=== PATIENT | female | born 1960 | race Caucasian/White ===

== ENCOUNTER 2022-01-11 12:04 | Outpatient (CLI) | payer OTHER, MEDICAID, SELFPAY ==
[2022-01-11 12:41] LABS: Basophils Percent Auto 0.4 % (0.2-1.2); Eosinophils Absolute Auto 0.3 K/mm3 (0-0.3); Eosinophils Percent Auto 3.8 % (0-4.4); Hematocrit 43.1 % (37.0-47.0); Hemoglobin 13.9 g/dL (12.0-15.0); Immature Granulocyte Absolute 0.03 K/mm3 (0.00-0.031); Immature Granulocyte Percent A 0.4 % (0-0.5); Lymphocytes Absolute Auto 1.78 K/mm3 (0.9-3.2); Lymphocytes Percent Auto 21.7 % (18.3-44.2); Mean Corpuscular HGB Conc 32.3 g/dl (32-36); Mean Corpuscular Volume 93.1 fl (80-100); Mean Platelet Volume 9.3 fl (7.4-10.4); Monocytes Absolute Auto 0.4 K/mm3 (0.1-0.6); Monocytes Percent Auto 4.6 % (2.6-8.5); Neutrophils Absolute Auto 5.7 K/mm3 (1.3-6.7); Neutrophils Percent Auto 69.1 % (45.5-73.1); Platelet Count Result 169 k/mm3 (150-375); Red Blood Count 4.63 M/mm3 (4.2-5.4); Red Cell Distribution Width 16.9 % (11.5-14.5); White Blood Count 8.2 K/mm3 (4.5-10.0)
[2022-01-11 12:57] LABS: Alanine Aminotransferase 12 U/L (4-35); Albumin Level 4.5 g/dL (3.5-5.1); Alkaline Phosphatase 94 U/L (38-126); Anion Gap 7 mmol/L (8-16); Aspartate Amino Transferase 22 U/L (14-36); Bilirubin,Total 0.6 mg/dL (0.2-1.3); Blood Urea Nitrogen 11 mg/dL (7-17); Calcium 8.4 mg/dL (8.4-10.2); Carbon Dioxide 31 mmol/L (22-30); Chloride 102 mmol/L (98-107); Cholesterol 148 mg/dL (0-200); Estimated Glomerular Filt Rate > 60; Glucose 111 mg/dL (65-110); HDL Direct 39 mg/dL; Potassium 4.3 mmol/L (3.4-5.0); Sodium 140 mmol/L (137-145); Triglycerides 210 mg/dL (<150)
[2022-01-11 13:08] LABS: LDL Cholesterol Direct 66 mg/dL
[2022-01-11 13:18] LABS: Hemoglobin A1C 5.5 % (<5.7)
== END 2022-01-11 12:05 | disposition home or self-care (01) ==
PROVIDERS: PCP Family Medicine; Visit Provider Physician Assistant Medical
DX: I10 Essential (primary) hypertension (principal); E78.5 Hyperlipidemia, unspecified; E11.9 Type 2 diabetes mellitus without complications
CPT/HCPCS: 36415; 80053; 80061; 83036; 84443; 85025

== ENCOUNTER 2022-06-21 14:26 | Outpatient (CLI) | payer MEDICARE, MEDICAID, SELFPAY ==
--- NOTE | ~2022-06-21 | XR_ITS ---
XR foot RT min 3V DATE: 06/21/2022 15:24 INDICATION: Old fracture of fifth metatarsal bone TECHNIQUE: 5 views COMPARISON: None FINDINGS: Slight plantar and mild posterior calcaneal enthesopathy. There is an old healed united fracture deformity at the base of the fifth metatarsal bone. No recent fracture or dislocation, periosteal reaction or bone destruction. IMPRESSION: Old healed fifth metatarsal base fracture line calcaneal enthesopathy Reviewed, dictated and finalized at location B. IMPRESSION: Old healed fifth metatarsal base fracture line calcaneal enthesopat hy
[2022-06-21 15:38] LABS: Alanine Aminotransferase 14 U/L (6-35); Albumin Level 4.5 g/dL (3.5-5.1); Alkaline Phosphatase 93 U/L (38-126); Anion Gap 13 mmol/L (8-16); Aspartate Amino Transferase 21 U/L (14-36); Bilirubin,Total 0.4 mg/dL (0.2-1.3); Blood Urea Nitrogen 12 mg/dL (7-17); Calcium 8.6 mg/dL (8.4-10.2); Carbon Dioxide 30 mmol/L (22-30); Chloride 97 mmol/L (98-107); Estimated Glomerular Filt Rate > 60; Glucose 103 mg/dL (65-110); Potassium 4.2 mmol/L (3.4-5.0); Sodium 140 mmol/L (137-145)
== END 2022-06-21 14:27 | disposition home or self-care (01) ==
PROVIDERS: PCP Family Medicine; Referring Provider Family Medicine; Visit Provider Family Medicine
DX: S92.351A Displaced fracture of fifth metatarsal bone, right foot, initial encounter for closed fracture (principal); E83.42 Hypomagnesemia; J96.22 Acute and chronic respiratory failure with hypercapnia; M77.31 Calcaneal spur, right foot
CPT/HCPCS: 36415; 73630; 80053

== ENCOUNTER 2023-01-25 09:21 | Outpatient (CLI) | payer MEDICARE, MEDICAID, SELFPAY ==
[2023-01-25 10:20] LABS: Alanine Aminotransferase 20 U/L (6-35); Albumin Level 4.6 g/dL (3.5-5.1); Alkaline Phosphatase 113 U/L (38-126); Anion Gap 7 mmol/L (8-16); Aspartate Amino Transferase 32 U/L (14-36); Bilirubin,Total 0.7 mg/dL (0.2-1.3); Blood Urea Nitrogen 12 mg/dL (7-17); Calcium 8.9 mg/dL (8.4-10.2); Carbon Dioxide 32 mmol/L (22-30); Chloride 98 mmol/L (98-107); Cholesterol 156 mg/dL (0-200); Estimated Glomerular Filt Rate > 60; Glucose 203 mg/dL (65-110); HDL Direct 39 mg/dL; Potassium 5.2 mmol/L (3.4-5.0); Sodium 137 mmol/L (137-145); Triglycerides 307 mg/dL (<150)
[2023-01-25 10:29] LABS: Hemoglobin A1C 9.6 % (<5.7)
[2023-01-25 10:39] LABS: Creatinine Urine 82.3 mg/dL
[2023-01-25 10:43] LABS: Microalbumin Urine Random 38.7 mg/L (0-16.7)
[2023-01-25 10:45] LABS: LDL Cholesterol Direct 73 mg/dL
[2023-01-25 11:07] LABS: Vitamin D 25 Hydroxy < 12.8 ng/mL
== END 2023-01-25 09:22 | disposition home or self-care (01) ==
PROVIDERS: PCP Family Medicine; Visit Provider Nurse Practitioner Family
DX: E11.9 Type 2 diabetes mellitus without complications (principal); I10 Essential (primary) hypertension; F41.9 Anxiety disorder, unspecified; E55.9 Vitamin D deficiency, unspecified
CPT/HCPCS: 36415; 80053; 80061; 82043; 82306; 83036; 84443

== ENCOUNTER 2023-05-09 10:29 | Outpatient (CLI) | payer MEDICARE, MEDICAID, SELFPAY | END 2023-05-09 10:30 | disposition home or self-care (01) | LOC: ANHAUDIO 10:29 | PROVIDERS: PCP Family Medicine; Visit Provider Nurse Practitioner Family | DX: H90.3 Sensorineural hearing loss, bilateral (principal); H93.19 Tinnitus, unspecified ear | CPT/HCPCS: 92557; 92567 ==

== ENCOUNTER 2023-05-21 20:21 | Emergency (ER) | payer MEDICARE, MEDICAID, SELFPAY ==
--- NOTE | ~2023-05-21 | CT_ITS ---
EXAMINATION: CT abdomen pelvis w con DATE: 05/21/2023 22:03 INDICATION: Generalized abdominal pain. TECHNIQUE: Computed tomography (CT) of the abdomen and pelvis was performed with 100 mL Omnipaque 350 intravenous contrast. Automated exposure control and iterative reconstruction technique were employe d. The dose-length product was 1492.51 mGy-cm. COMPARISON: CT abdomen and pelvis 12/04/2012 FINDINGS: The visualized portions of the lung bases demonstrate mild atelectasis. There is a 5 mm nod ule in left lower lobe, likely benign. No pleural effusion. The heart size is normal. There is lipoma tous hypertrophy of the interatrial septum. No pericardial effusion. The liver is normal. There are c hanges of cholecystectomy. There is mild splenomegaly. The pancreas is normal. There is fat stranding and free gas adjacent to the duodenum, consistent with perforated ulcer. There are masses of fat in the adrenal glands measuring up to 2.5 cm on the left, consistent with myelolipomas. There is a 3.9 c m mass in right kidney measuring soft tissue attenuation. There are cysts in the left kidney measurin g up to 3.2 cm . There are no dilated loops of bowel. The appendix is normal. Aortic atherosclerosis is noted. There are no pathologically enlarged lymph nodes. There is no free intraperitoneal fluid. T here is a 6.4 cm mass in the mesentery with central fat attenuation and peripheral calcifications, co nsistent with old fat necrosis. There is severe lumbar spondylosis. There is a burst fracture of L2 w ith 5 mm retropulsion of bone into central spinal canal and 3/5 loss of height, likely subacute or ch ronic. There is mild chronic anterior wedging of multiple thoracic vertebral bodies. There is moderat e thoracic and lumbar spondylosis. There are bridging endplate osteophytes at multiple levels in the thoracic spine, consistent with diffuse idiopathic skeletal hyperostosis (DISH). IMPRESSION: 1. Perforated duodenal ulcer. 2. 3.9 cm right kidney mass. This finding may be a hemorrhagic cyst or less likely a neoplasm. Ultras ound is recommended. Reviewed, dictated and finalized at location A. IMPRESSION: 1. Perforated duodenal ulcer. 2. 3.9 cm right kidney mass. This finding may be a hemorrhagic cyst or less lik gunnar a neoplasm. Ultrasound is recommended.
[2023-05-21 20:32] VITALS: BP 135/116; PULSE 97; RESP 14; TEMP 36.2; O2SAT 98
[2023-05-21] MEDS: SODIUM CHLORIDE 0.9% IV 1,000 ML 999 ML IV CONT ×2 (21:21→22:18)
[2023-05-21] MEDS: ONDANSETRON INJ 4 MG/2 ML VIAL IV PUSH (21:21)
[2023-05-21 21:26] LABS: Basophils Absolute Auto 0.1 K/mm3 (0.0-0.1); Basophils Percent Auto 0.6 % (0.2-1.2); Eosinophils Absolute Auto 0.8 K/mm3 (0-0.3); Eosinophils Percent Auto 4.6 % (0-4.4); Hematocrit 27.2 % (37.0-47.0); Hemoglobin 8.3 g/dL (12.0-15.0); Immature Granulocyte Absolute 0.24 K/mm3 (0.00-0.031); Immature Granulocyte Percent A 1.3 % (0-0.5); Lymphocytes Absolute Auto 1.61 K/mm3 (0.9-3.2); Mean Corpuscular HGB Conc 30.5 g/dl (32-36); Mean Corpuscular Hemoglobin 28.5 pg (26-34); Mean Corpuscular Volume 93.5 fl (80-100); Mean Platelet Volume 9.7 fl (7.4-10.4); Monocytes Absolute Auto 0.7 K/mm3 (0.1-0.6); Monocytes Percent Auto 3.9 % (2.6-8.5); Neutrophils Absolute Auto 14.4 K/mm3 (1.3-6.7); Neutrophils Percent Auto 80.6 % (45.5-73.1); Nucleated Red Blood Cells Perc 0.2 % (0.0-0.2); Platelet Count Result 378 k/mm3 (150-375); Red Blood Count 2.91 M/mm3 (4.2-5.4); Red Cell Distribution Width 17.3 % (11.5-14.5); White Blood Count 17.9 K/mm3 (4.5-10.0)
[2023-05-21 21:34] LABS: Lactic Acid Reflex 3.3 mmol/L (0.7-2.0)
[2023-05-21 21:36] LABS: Alanine Aminotransferase 16 U/L (6-35); Albumin Level 3.7 g/dL (3.5-5.1); Alkaline Phosphatase 86 U/L (38-126); Anion Gap 11 mmol/L (8-16); Aspartate Amino Transferase 20 U/L (14-36); Bilirubin,Total 0.4 mg/dL (0.2-1.3); Blood Urea Nitrogen 38 mg/dL (7-17); Calcium 8.2 mg/dL (8.4-10.2); Carbon Dioxide 25 mmol/L (22-30); Chloride 96 mmol/L (98-107); Estimated CRCL calculation 49 ml/min; Estimated Glomerular Filt Rate 35; Glucose 232 mg/dL (65-110); INR 1.2; Lipase 71 U/L (23-300); Magnesium 1.6 mg/dL (1.6-2.3); Potassium 5.7 mmol/L (3.4-5.0); Prothrombin Time 15.2 Seconds (11.1-14.7); Sodium 132 mmol/L (137-145)
[2023-05-21 21:37] LABS: Partial Thromboplastin Time 27.8 SECONDS (22.3-36.8)
--- NOTE | 2023-05-21 21:44 | PC.NURSE ---
pt taken to CT at this time
[2023-05-21 22:30] LABS: Appearance Urine Cloudy (Clear); Bacteria Urine None Seen /hpf; Bilirubin Urine Negative (Negative); Blood Urine Negative (Negative); Color Urine Yellow (Yellow); Glucose Urine UA 3+ mg/dL (Negative); Ketones Urine Negative (Negative); Leukocyte Esterase Ur Trace LEU/UL (Negative); Need Manual Microscopic Reviewed; Nitrate Urine Negative (Negative); Protein Urine Negative (Negative); RBC Urine 0-2 /hpf (0-2); Specific Grav Ur 1.026 (1.001-1.035); Squamous Epithelial Cell Urine Occasional /hpf (Few); Urobilinogen Urine 0.2 mg/dL (<2.0); WBC Urine 0-5 /hpf
[2023-05-21 22:31] LABS: Add Urine Microscopic? YES
[2023-05-21] MEDS: MAGNESIUM SULF 2 GM/WATER 50ML 2 GM/50 ML BAG IVPB (22:54)
[2023-05-21] MEDS: HYDROmorphone HCL INJ (*CRX) 1 MG/ML SYR IV PUSH (23:53)
--- NOTE | 2023-05-21 23:56 | ED.GENADULT ---
HPI - General Adult General Chief complaint: GI Bleed Stated complaint: gi bleed Time Seen by Provider: 05/21/23 20:34 History of Present Illness HPI narrative: Patient is a 63-year-old female who presents the emergency department with chief complaint of abdominal pain nausea and vomiting. Patient reports that she started having abdominal pain about 4 days ago and has also had multiple episodes of vomiting and diarrhea. Patient reports that she has prior history of history of gastric 8 years ago at [facility] patient states that she does not want to go back to [facility] as people by there. Patient reports that she has been recently treated with antibiotics for dental infection and reports that she was seen at [place] emergency department and had a x-ray of her abdomen and was given a prescription for Zofran. Patient reports this feels similar to whenever she had a bowel perforation in the past. Related Data Allergies Allergy/AdvReac Type Severity Reaction Status Date / Time No Known Allergies Allergy Verified 02/10/23 09:20 Review of Systems Review of Systems: A 10 system review of systems was completed on the patient and is negative except for what is stated in the HPI. Nursing and ancillary documentation was reviewed. [facility] Past Medical History Medical History (Updated 05/22/23 @ 01:20 by Miguel Salgado MD) Agoraphobia with panic disorder Atherosclerotic heart disease of [place] coronary artery with angina pectoris CHF (congestive heart failure) With preserved ejection fraction echocardiogram April 2022 EF 62% unable to evaluate pulmonary pressures due to difficult study pericardial effusion study performed at [facility] Chronic respiratory failure with hypoxia and hypercapnia Compression fracture T10 through T12 vertebral body COPD (chronic obstructive pulmonary disease) De Quervain's tenosynovitis Diabetes Diabetic retinopathy Essential (primary) hypertension Fracture of 5th metatarsal Hepatosplenomegaly MDD (major depressive disorder) Mixed hyperlipidemia Morbid (severe) obesity due to excess calories With a BMI as high as 60 in the past but currently 46 Obstructive sleep apnea Peripheral neuropathy Tinnitus Uterine cancer Venous stasis of both lower extremities Vitamin D deficiency Surgical History Surgical History (Updated 05/22/23 @ 00:07 by Jocelin Magana DO) Gastric ulcer with perforation 2011 treated at [place] History of colonoscopy with polypectomy (~2014) Hyperplastic polyp, dr. Salazar History of lumbar laminectomy History of right heart catheterization History of total hysterectomy with bilateral salpingo-oophorectomy (BSO) Hx of cholecystectomy Family History Family History Sibling Family history of thyroid disease Mother Hypertension Family history of diabetes mellitus in first degree relative Acute myocardial infarction Father Family history of chronic obstructive pulmonary disease Malignant neoplasm of prostate Family history of lung cancer Skin cancer Sibling Thyroid activity decreased Breast cancer Other Carcinoma of colon Cerebrovascular accident Diabetes mellitus Family history of allergic disorder Family history of cardiovascular disease Family history of malignant neoplasm Social History Social History Smoking status: Former smoker Second hand tobacco smoke exposure: Yes Smoking end date: 10/02/12 Alcohol intake: never Substance use: never Substance use type: does not use Lack of Transportation: No Lack of Food: Never True Current Housing: I Have Housing Concerned About Future Housing: No Difficulty Paying Gas/Electric Bills: No Difficulty Paying for Meds: No Currently Unemployed: No Education: Bachelor's Degree Difficulty w/ Childcare or Family Care: No
[2023-05-22] VITALS (14 sets, daily range): BP systolic 51–86; BP diastolic 25–54; PULSE 92–121; RESP 13–22; TEMP 36.8; O2SAT 93–99
--- NOTE | 2023-05-22 00:05 | PC.NURSE ---
pt found to be hypotensive. Dr. Salgado aware. IVFs initiated per previous orders. pt A&Ox4 in no distress. will continue to monitor.
[2023-05-22] MEDS: PIPERACILLN/TAZ 3.375GM/NS50ML 3.375 GM/50 ML BAG IVPB (00:12)
[2023-05-22 00:23] LABS: Reflex Lactic Acid Yes or No Add Lactic
[2023-05-22 00:49] LABS: Hematocrit 23.1 % (37.0-47.0); Hemoglobin 7.1 g/dL (12.0-15.0)
[2023-05-22] MEDS: SODIUM CHLORIDE 0.9% IV 1,000 ML 999 ML IV CONT (00:58)
[2023-05-22 01:00] LABS: Lactic Acid 1.3 mmol/L (0.7-2.0)
[2023-05-22] MEDS: PANTOPRAZOLE SODIUM IV 40 MG VIAL 80 MG IV PUSH (01:15)
--- NOTE | 2023-05-22 01:30 | PC.NURSE ---
pt to be transferred to [facility] in [place]. pt/family aware.
--- NOTE | 2023-05-22 01:55 | PC.NURSE ---
Report given to Narendra at [facility].
--- NOTE | 2023-05-22 02:05 | PC.NURSE ---
[facility] here to transport pt. PRBCs initiated by team.
== END 2023-05-22 02:43 | disposition short-term general hospital (02) ==
PROVIDERS: Emergency Provider Emergency Medicine; PCP Family Medicine
DX: K26.5 Chronic or unspecified duodenal ulcer with perforation (principal); I10 Essential (primary) hypertension; E11.9 Type 2 diabetes mellitus without complications; E78.2 Mixed hyperlipidemia; Z87.891 Personal history of nicotine dependence
CPT/HCPCS: 36415; 36430; 74177; 80053; 81001; 83605; 83690; 83735; 85014; 85018; 85025; 85610; 85730; 86850; 86900; 86901; 86923; 96361; 96365; 96367; 96375; 99285; C9113; J1170; J2405; J2543; J3475; J7030; P9016; Q9967

== ENCOUNTER 2023-06-08 10:45 | Emergency (ER) | payer MEDICARE, MEDICAID, SELFPAY ==
[2023-06-08] VITALS (7 sets, daily range): BP systolic 109–148; BP diastolic 61–79; PULSE 90–121; RESP 13–20; TEMP 37.4; O2SAT 93–99
--- NOTE | ~2023-06-08 | CT_ITS ---
EXAMINATION: CT abdomen pelvis w con INDICATION: Abdominal pain TECHNIQUE: Computed tomographic images of the abdomen and pelvis were obtained after the administrati on of 100 cc of Omnipaque 350 intravenous contrast. The dose-length product (DLP) was 1696.95 mGy-cm. Automated exposure control and iterative reconstruction technique were employed. COMPARISON: 05/21/2023 FINDINGS: Minimal dependent atelectasis is present in the lung bases. The heart size is normal. There is lipomatous hypertrophy of the interatrial septum. The liver and pancreas are normal. Splenomegaly is noted. Fat-containing masses of the adrenal glands, measuring up to 2.5 cm on the left, are consi stent with a myelolipomas. Changes of cholecystectomy are noted. There is persistent right upper quad rant inflammatory change near the site of the previously described perforated duodenal ulcer. No defi nite extraluminal gas is identified. There is an unchanged 3.9 cm soft tissue density mass of the rig ht kidney. Cysts of the left kidney measure up to 3.2 cm. No pathologically enlarged abdominal or pel maicol lymph nodes are identified. No free intraperitoneal gas or evidence of bowel obstruction. The lillian endix is normal. Again seen is a 6.8 cm peripherally calcified mass of the small bowel mesentery with central low-attenuation, consistent with fat necrosis. There is severe lumbar spondylosis. An L2 bur st fracture is again noted. IMPRESSION: 1. Inflammatory change in the first portion of the duodenum at the site of the previously described p erforated duodenal ulcer. No definite perforation is identified. 2. Stable indeterminate right kidney mass. Reviewed, dictated and finalized at location L. IMPRESSION: 1. Inflammatory change in the first portion of the duodenum at the site of the previously described perforated duodenal ulcer. No definite perforation is iden tified. 2. Stable indeterminate right kidney mass.
--- NOTE | 2023-06-08 10:51 | ECG_ITS ---
Measurements Intervals [place] Rate: 118 P: WI: 0 QRS: 51 QRSD: 92 T: 43 QT: 341 QTc: 479 Interpretive Statements ATRIAL FLUTTER/TACHYCARDIA WITH RAPID VENTRICULAR RESPONSE DELAYED PRECORDIAL R/S TRANSITION CONSIDER INFERIOR INFARCT, AGE INDETERMINATE BASELINE ARTIFACT- I, II, AVR, AVL, AVF ABNORMAL ECG NO PREVIOUS ECG AVAILABLE FOR COMPARISON Electronically Signed On 06-08-2023 11:56:45 CDT by Chema Franco D.O.
[2023-06-08 12:18] LABS: Basophils Percent Auto 0.6 % (0.2-1.2); Eosinophils Absolute Auto 0.1 K/mm3 (0-0.3); Eosinophils Percent Auto 1.8 % (0-4.4); Hematocrit 32.2 % (37.0-47.0); Hemoglobin 9.2 g/dL (12.0-15.0); Immature Granulocyte Absolute 0.03 K/mm3 (0.00-0.031); Immature Granulocyte Percent A 0.5 % (0-0.5); Lymphocytes Absolute Auto 0.94 K/mm3 (0.9-3.2); Lymphocytes Percent Auto 15.2 % (18.3-44.2); Mean Corpuscular HGB Conc 28.6 g/dl (32-36); Mean Platelet Volume 9.8 fl (7.4-10.4); Monocytes Absolute Auto 0.3 K/mm3 (0.1-0.6); Monocytes Percent Auto 4.4 % (2.6-8.5); Neutrophils Absolute Auto 4.8 K/mm3 (1.3-6.7); Neutrophils Percent Auto 77.5 % (45.5-73.1); Platelet Count Result 191 k/mm3 (150-375); Red Blood Count 3.54 M/mm3 (4.2-5.4); Red Cell Distribution Width 16.8 % (11.5-14.5); White Blood Count 6.2 K/mm3 (4.5-10.0)
[2023-06-08 12:29] LABS: INR 1.1; Prothrombin Time 14.3 Seconds (11.1-14.7)
[2023-06-08 12:32] LABS: Alanine Aminotransferase 16 U/L (6-35); Albumin Level 3.9 g/dL (3.5-5.1); Alkaline Phosphatase 69 U/L (38-126); Anion Gap 8 mmol/L (8-16); Aspartate Amino Transferase 22 U/L (14-36); Bilirubin,Total 0.4 mg/dL (0.2-1.3); Blood Urea Nitrogen 11 mg/dL (7-17); Calcium 8.5 mg/dL (8.4-10.2); Carbon Dioxide 34 mmol/L (22-30); Chloride 98 mmol/L (98-107); Estimated CRCL calculation 117 ml/min; Estimated Glomerular Filt Rate > 60; Glucose 224 mg/dL (65-110); Potassium 4.3 mmol/L (3.4-5.0); Sodium 140 mmol/L (137-145)
[2023-06-08 12:36] LABS: Hypochromasia 1+ (NORMAL); Platelet Estimate Adequate (Adequate)
[2023-06-08 12:37] LABS: Anisocytosis 1+ (NORMAL); Macrocytosis 1+ (NORMAL); Schistocytes None Seen (NORMAL)
--- NOTE | 2023-06-08 12:39 | ED.GIBLEED ---
HPI - GI Bleed General Chief complaint: GI Bleed Stated complaint: gi bleed Time Seen by Provider: 06/08/23 12:28 History of Present Illness HPI Narrative: Patient is a 63-year-old female with history of perforated duodenal ulcer here with abdominal pain and dark stools. Patient states that around midnight last night she started having exquisite abdominal pain associated with multiple rounds of emesis and dark stools. She notes that this was similar presentation to her last hospitalization where she was transferred to [facility] to the ICU for perforated duodenal ulcer. She notes that no surgery was required during that hospitalization. She has otherwise been doing pretty well. She notes that she had about 15 episodes of vomiting and diarrhea since this morning and she came into the emergency department for evaluation. She notes her stools are not quite as dark as they were on her last presentation. She denies any lightheadedness. She does endorse some shortness of breath and an EMS arrival she was placed on 2 L nasal cannula. She denies home oxygen use. She does note that she had CHF from the COVID shot in the past. Denies cough, congestion, chest pain. Related Data Home Medications Medication Instructions Recorded Confirmed pantoprazole 40 mg tablet,delayed mg PO 06/06/23 06/06/23 release Allergies Allergy/AdvReac Type Severity Reaction Status Date / Time cephalexin [From Keflex] AdvReac Other Verified 06/08/23 10:59 Review of Systems Review of Systems: CONSTITUTIONAL: Denies fever, chills, or sweats. EYES: Denies visual changes, redness, or discharge. ENT: Denies rhinorrhea, congestion, sore throat, or otalgia. CARDIOVASCULAR: Denies chest pain, palpitations, or edema. RESPIRATORY: Denies cough or dyspnea. GASTROINTESTINAL: abdominal pain, nausea, vomiting, and diarrhea. GENITOURINARY: Denies dysuria or hematuria. SKIN: Denies rash or itching. MUSCULOSKELETAL: Denies back pain, joint pain, or myalgia. NEUROLOGIC: Denies headache, numbness, or weakness. PSYCHIATRIC: Denies anxiety or depression. [facility] Past Medical History Medical History Agoraphobia with panic disorder Atherosclerotic heart disease of [place] coronary artery with angina pectoris CHF (congestive heart failure) With preserved ejection fraction echocardiogram April 2022 EF 62% unable to evaluate pulmonary pressures due to difficult study pericardial effusion study performed at [facility] Chronic respiratory failure with hypoxia and hypercapnia Compression fracture T10 through T12 vertebral body COPD (chronic obstructive pulmonary disease) De Quervain's tenosynovitis Diabetes Diabetic retinopathy Essential (primary) hypertension Fracture of 5th metatarsal Hepatosplenomegaly MDD (major depressive disorder) Mixed hyperlipidemia Morbid (severe) obesity due to excess calories With a BMI as high as 60 in the past but currently 46 Obstructive sleep apnea Peripheral neuropathy Tinnitus Uterine cancer Venous stasis of both lower extremities Vitamin D deficiency Surgical History Surgical History Gastric ulcer with perforation 2011 treated at [place] History of colonoscopy with polypectomy (~2014) Hyperplastic polyp, dr. Salazar History of lumbar laminectomy History of right heart catheterization History of total hysterectomy with bilateral salpingo-oophorectomy (BSO) Hx of cholecystectomy Family History Family History Sibling Family history of thyroid disease Mother Hypertension Family history of diabetes mellitus in first degree relative Acute myocardial infarction Father Family history of chronic obstructive pulmonary disease Malignant neoplasm of prostate Family history of lung cancer Skin cancer Sibling Thyr
--- NOTE | 2023-06-08 13:08 | PC.NURSE ---
Pt taken off 2L O2 NC per EDP Dr. Bruce
[2023-06-08] MEDS: PANTOPRAZOLE SODIUM IV 40 MG VIAL 80 MG IV PUSH (13:40)
== END 2023-06-08 16:29 | disposition home or self-care (01) ==
PROVIDERS: Emergency Provider Student in an Organized Health Care Education/Training Program; PCP Family Medicine
DX: R10.9 Unspecified abdominal pain (principal); I25.119 Atherosclerotic heart disease of native coronary artery with unspecified angina pectoris; I50.9 Heart failure, unspecified; I11.0 Hypertensive heart disease with heart failure; I87.8 Other specified disorders of veins; J96.11 Chronic respiratory failure with hypoxia; J96.12 Chronic respiratory failure with hypercapnia; J44.9 Chronic obstructive pulmonary disease, unspecified; E11.319 Type 2 diabetes mellitus with unspecified diabetic retinopathy without macular edema; E11.42 Type 2 diabetes mellitus with diabetic polyneuropathy; E78.2 Mixed hyperlipidemia; E55.9 Vitamin D deficiency, unspecified; F40.01 Agoraphobia with panic disorder; F32.9 Major depressive disorder, single episode, unspecified; G47.33 Obstructive sleep apnea (adult) (pediatric); Z85.42 Personal history of malignant neoplasm of other parts of uterus; Z87.19 Personal history of other diseases of the digestive system; Z87.891 Personal history of nicotine dependence; Z90.710 Acquired absence of both cervix and uterus; Z90.79 Acquired absence of other genital organ(s); Z90.722 Acquired absence of ovaries, bilateral; Z90.49 Acquired absence of other specified parts of digestive tract; Z79.84 Long term (current) use of oral hypoglycemic drugs; N28.89 Other specified disorders of kidney and ureter; R00.0 Tachycardia, unspecified; I48.92 Unspecified atrial flutter; R94.31 Abnormal electrocardiogram [ECG] [EKG]
CPT/HCPCS: 36415; 74177; 80053; 85025; 85610; 85730; 86850; 86900; 86901; 93005; 96374; 99284; C9113; Q9967

== ENCOUNTER 2023-06-28 10:41 | Outpatient (CLI) | payer MEDICARE, MEDICAID, SELFPAY ==
[2023-06-28 11:34] LABS: Hematocrit 34.2 % (37.0-47.0); Hemoglobin 9.9 g/dL (12.0-15.0); Mean Corpuscular HGB Conc 28.9 g/dl (32-36); Mean Corpuscular Hemoglobin 24.7 pg (26-34); Mean Corpuscular Volume 85.3 fl (80-100); Mean Platelet Volume 9.3 fl (7.4-10.4); Platelet Count Result 281 k/mm3 (150-375); Red Blood Count 4.01 M/mm3 (4.2-5.4); Red Cell Distribution Width 18.1 % (11.5-14.5)
[2023-06-28 11:55] LABS: Alanine Aminotransferase 14 U/L (6-35); Albumin Level 4.2 g/dL (3.5-5.1); Alkaline Phosphatase 75 U/L (38-126); Anion Gap 10 mmol/L (8-16); Aspartate Amino Transferase 23 U/L (14-36); Bilirubin,Total 0.4 mg/dL (0.2-1.3); Blood Urea Nitrogen 18 mg/dL (7-17); Calcium 9.1 mg/dL (8.4-10.2); Carbon Dioxide 25 mmol/L (22-30); Chloride 99 mmol/L (98-107); Estimated Glomerular Filt Rate > 60; Glucose 138 mg/dL (65-110); Potassium 5.4 mmol/L (3.4-5.0); Sodium 134 mmol/L (137-145)
== END 2023-06-28 10:42 | disposition home or self-care (01) ==
PROVIDERS: PCP Family Medicine; Visit Provider Nurse Practitioner Family
DX: K92.2 Gastrointestinal hemorrhage, unspecified (principal)
CPT/HCPCS: 36415; 80053; 85027

== ENCOUNTER 2023-07-25 09:56 | Outpatient (CLI) | payer MEDICARE, MEDICAID, SELFPAY ==
[2023-07-25 10:18] LABS: Hematocrit 34.4 % (37.0-47.0); Hemoglobin 9.6 g/dL (12.0-15.0); Mean Corpuscular HGB Conc 27.9 g/dl (32-36); Mean Corpuscular Hemoglobin 22.7 pg (26-34); Mean Corpuscular Volume 81.3 fl (80-100); Mean Platelet Volume 9.5 fl (7.4-10.4); Platelet Count Result 321 k/mm3 (150-375); Red Blood Count 4.23 M/mm3 (4.2-5.4); Red Cell Distribution Width 18.6 % (11.5-14.5); White Blood Count 8.1 K/mm3 (4.5-10.0)
[2023-07-25 10:25] LABS: Potassium 4.8 mmol/L (3.4-5.0)
== END 2023-07-25 09:57 | disposition home or self-care (01) ==
PROVIDERS: PCP Family Medicine; Visit Provider Nurse Practitioner Family
DX: D64.9 Anemia, unspecified (principal); E87.5 Hyperkalemia
CPT/HCPCS: 36415; 84132; 85027

== ENCOUNTER 2023-08-14 17:14 | Emergency (ER) | payer MEDICARE, MEDICAID, SELFPAY ==
[2023-08-14] VITALS (9 sets, daily range): BP systolic 90–143; BP diastolic 57–115; PULSE 80–116; RESP 16–22; TEMP 36.2; O2SAT 86–98
--- NOTE | 2023-08-14 18:01 | ED.GENADULT ---
HPI - General Adult General Chief complaint: Weakness Stated complaint: gen. weak x 2 week Time Seen by Provider: 08/14/23 17:33 History of Present Illness HPI narrative: 63-year-old female history of bleeding duodenal ulcer present to the emergency department for evaluation of increased generalized weakness. Patient states she has had persistent blood in her stool and is scheduled to follow-up with Dr. Salazar in 2 weeks and is scheduled to have a transfusion this Monday. Patient initially called for lift assist but then called the EMS service that she went to be evaluated emergency department. Patient reports decreased p.o. intake. Related Data Allergies Allergy/AdvReac Type Severity Reaction Status Date / Time cephalexin [From Keflex] AdvReac Other Verified 06/08/23 10:59 Review of Systems Review of Systems: All systems reviewed & are unremarkable except as noted in HPI and below PMFSH Past Medical History Medical History Agoraphobia with panic disorder Atherosclerotic heart disease of [place] coronary artery with angina pectoris CHF (congestive heart failure) With preserved ejection fraction echocardiogram April 2022 EF 62% unable to evaluate pulmonary pressures due to difficult study pericardial effusion study performed at [facility] Chronic respiratory failure with hypoxia and hypercapnia Compression fracture T10 through T12 vertebral body COPD (chronic obstructive pulmonary disease) De Quervain's tenosynovitis Diabetes Diabetic retinopathy Essential (primary) hypertension Fracture of 5th metatarsal Hepatosplenomegaly MDD (major depressive disorder) Mixed hyperlipidemia Morbid (severe) obesity due to excess calories With a BMI as high as 60 in the past but currently 46 Obstructive sleep apnea Peripheral neuropathy Tinnitus Uterine cancer Venous stasis of both lower extremities Vitamin D deficiency Surgical History Surgical History Gastric ulcer with perforation 2011 treated at [place] History of colonoscopy with polypectomy (~2014) Hyperplastic polyp, dr. Salazar History of lumbar laminectomy History of right heart catheterization History of total hysterectomy with bilateral salpingo-oophorectomy (BSO) Hx of cholecystectomy Family History Family History Sibling Family history of thyroid disease Mother Hypertension Family history of diabetes mellitus in first degree relative Acute myocardial infarction Father Family history of chronic obstructive pulmonary disease Malignant neoplasm of prostate Family history of lung cancer Skin cancer Sibling Thyroid activity decreased Breast cancer Other Carcinoma of colon Cerebrovascular accident Diabetes mellitus Family history of allergic disorder Family history of cardiovascular disease Family history of malignant neoplasm Social History Social History Smoking status: Former smoker Second hand tobacco smoke exposure: Yes Smoking end date: 10/02/12 Alcohol intake: never Substance use: never Substance use type: does not use Lack of Transportation: No Lack of Food: Never True Current Housing: I Have Housing Concerned About Future Housing: No Difficulty Paying Gas/Electric Bills: No Difficulty Paying for Meds: No Currently Unemployed: No Education: Bachelor's Degree Difficulty w/ Childcare or Family Care: No Living arrangements: alone Occupation/Education: retired Additional occupation/education comments: disabled-spinal cord injury/school bus aide/teacher Gender identity (if verbalized by the patient): Female Exam Narrative: APPEARANCE: Well appearing, no pain, no distress, well-nourished. HEAD: normocephalic, atraumatic. EYES: PERRLA/EOMI, conju
[2023-08-14] MEDS: PANTOPRAZOLE SODIUM IV 40 MG VIAL IV PUSH (18:10)
[2023-08-14] MEDS: SODIUM CHLORIDE 0.9% IV 1,000 ML 999 ML IV CONT (18:10)
[2023-08-14 18:20] LABS: Basophils Percent Auto 0.3 % (0.2-1.2); Eosinophils Absolute Auto 1.2 K/mm3 (0-0.3); Eosinophils Percent Auto 8.8 % (0-4.4); Hematocrit 32.4 % (37.0-47.0); Hemoglobin 9.2 g/dL (12.0-15.0); Immature Granulocyte Absolute 0.07 K/mm3 (0.00-0.031); Immature Granulocyte Percent A 0.5 % (0-0.5); Lymphocytes Absolute Auto 1.06 K/mm3 (0.9-3.2); Lymphocytes Percent Auto 7.8 % (18.3-44.2); Mean Corpuscular HGB Conc 28.4 g/dl (32-36); Mean Corpuscular Hemoglobin 22.2 pg (26-34); Mean Corpuscular Volume 78.1 fl (80-100); Mean Platelet Volume 9.8 fl (7.4-10.4); Monocytes Absolute Auto 0.6 K/mm3 (0.1-0.6); Monocytes Percent Auto 4.1 % (2.6-8.5); Neutrophils Absolute Auto 10.6 K/mm3 (1.3-6.7); Neutrophils Percent Auto 78.5 % (45.5-73.1); Platelet Count Result 280 k/mm3 (150-375); Red Blood Count 4.15 M/mm3 (4.2-5.4); Red Cell Distribution Width 19.7 % (11.5-14.5); White Blood Count 13.6 K/mm3 (4.5-10.0)
[2023-08-14 18:30] LABS: Alanine Aminotransferase 21 U/L (6-35); Albumin Level 3.5 g/dL (3.5-5.1); Alkaline Phosphatase 110 U/L (38-126); Anion Gap 16 mmol/L (8-16); Aspartate Amino Transferase 24 U/L (14-36); Bilirubin,Total 0.5 mg/dL (0.2-1.3); Blood Urea Nitrogen 34 mg/dL (7-17); Calcium 8.9 mg/dL (8.4-10.2); Carbon Dioxide 21 mmol/L (22-30); Chloride 96 mmol/L (98-107); Estimated CRCL calculation 27 ml/min; Estimated Glomerular Filt Rate 19; Glucose 147 mg/dL (65-110); Potassium 4.6 mmol/L (3.4-5.0); Sodium 133 mmol/L (137-145)
[2023-08-14 18:47] LABS: Platelet Estimate Adequate (Adequate)
[2023-08-14 18:48] LABS: Hypochromasia 1+ (NORMAL); Schistocytes None Seen (NORMAL)
[2023-08-14 18:49] LABS: Anisocytosis 3+ (NORMAL)
[2023-08-14 18:56] LABS: Influenza A QL RT-PCR Negative (Negative); Influenza B QL RT-PCR Negative (Negative); RSV RNA, RT-PCR Negative (Negative); SARS-CoV-2 RNA PCR Negative (Negative)
== END 2023-08-14 20:30 | disposition home or self-care (01) ==
PROVIDERS: Emergency Provider Emergency Medicine; PCP Family Medicine
DX: N17.9 Acute kidney failure, unspecified (principal); R53.1 Weakness; Z20.822 Contact with and (suspected) exposure to COVID-19; I25.119 Atherosclerotic heart disease of native coronary artery with unspecified angina pectoris; I50.9 Heart failure, unspecified; I11.0 Hypertensive heart disease with heart failure; I87.8 Other specified disorders of veins; J96.12 Chronic respiratory failure with hypercapnia; J96.11 Chronic respiratory failure with hypoxia; J44.9 Chronic obstructive pulmonary disease, unspecified; E11.319 Type 2 diabetes mellitus with unspecified diabetic retinopathy without macular edema; E11.42 Type 2 diabetes mellitus with diabetic polyneuropathy; E78.2 Mixed hyperlipidemia; E55.9 Vitamin D deficiency, unspecified; E66.01 Morbid (severe) obesity due to excess calories; Z68.41 Body mass index [BMI] 40.0-44.9, adult; G47.33 Obstructive sleep apnea (adult) (pediatric); F40.01 Agoraphobia with panic disorder; F32.9 Major depressive disorder, single episode, unspecified; Z85.42 Personal history of malignant neoplasm of other parts of uterus; Z87.19 Personal history of other diseases of the digestive system; Z87.891 Personal history of nicotine dependence; Z90.710 Acquired absence of both cervix and uterus; Z90.49 Acquired absence of other specified parts of digestive tract; Z79.84 Long term (current) use of oral hypoglycemic drugs
CPT/HCPCS: 36415; 80053; 85025; 87637; 96361; 96374; 99284; C9113; J7030

== ENCOUNTER 2024-02-13 13:54 | Observation (INO) | payer MEDICARE, MEDICAID, SELFPAY ==
[2024-02-13 13:59] VITALS: BP 127/72; PULSE 96; RESP 18; TEMP 36.6; O2SAT 95
--- NOTE | 2024-02-13 15:53 | ED.GENADULT ---
HPI - General Adult General Chief complaint: Urogenital-Female Stated complaint: complicated UTI Time Seen by Provider: 02/13/24 15:17 History of Present Illness HPI narrative: 63-year-old female presenting emergency department for evaluation for symptomatic urinary tract infection that is resistant to outpatient antibiotics. Patient states she was admitted had [facility] in October and ultimately had intra-abdominal surgery. And ultimately was at [facility] for approximately 4 months. Patient states she has had multiple rounds of outpatient antibiotics for an underlying urinary tract infection. Patient states that she did follow-up with her primary care physician due to persistent lower abdominal pain burning with urination and was told to present to the emergency department for treatment IV antibiotics. Patient has a urine culture on 02/07 showing Klebsiella pneumonia with multiple medication resistances. Attempted to have care coordination see the patient to have the patient set up for outpatient antibiotic infusion. Patient was comfortable with this plan but unfortunately logistically this was not possible here at [facility] at this time the day. Related Data Home Medications Medication Instructions Recorded Confirmed gabapentin 300 mg capsule 900 mg PO BID 02/08/24 02/13/24 diazepam 10 mg tablet 10 mg PO QHS anxiety 02/13/24 02/13/24 oxybutynin chloride 10 mg 20 mg PO QHS 02/13/24 02/13/24 tablet,extended release 24 hr Allergies Allergy/AdvReac Type Severity Reaction Status Date / Time cephalexin [From Keflex] AdvReac Other Verified 02/08/24 10:58 Review of Systems Review of Systems: All systems reviewed & are unremarkable except as noted in HPI and below PMFSH Past Medical History Medical History (Updated 02/13/24 @ 18:52 by Nasir Bill MD) Agoraphobia with panic disorder Atherosclerotic heart disease of [place] coronary artery with angina pectoris Chronic obstructive pulmonary disease Chronic respiratory failure with hypoxia and hypercapnia Compression fracture T10 through T12 vertebral body De Quervain's tenosynovitis Diabetic retinopathy Duodenal hemorrhage Duodenal ulcer Essential (primary) hypertension Fracture of 5th metatarsal Heart failure with preserved ejection fraction EF of 62% on echo in April 2022. Hepatosplenomegaly Major depressive disorder Mixed hyperlipidemia Morbid (severe) obesity due to excess calories With a BMI as high as 60 in the past but currently 46 Obstructive sleep apnea Overactive bladder Peripheral neuropathy Tinnitus Type 2 diabetes mellitus Uterine cancer Venous stasis of both lower extremities Vitamin D deficiency Surgical History Surgical History (Updated 02/13/24 @ 18:36 by Zeny Chavira PA-C) Gastric ulcer with perforation 2011 treated at [facility] History of cholecystectomy History of colonoscopy with polypectomy (~2014) Hyperplastic polyp, dr. Salazar History of lumbar laminectomy History of resection of stomach History of right heart catheterization History of total hysterectomy with bilateral salpingo-oophorectomy (BSO) Family History Family History Sibling Family history of thyroid disease Mother Hypertension Family history of diabetes mellitus in first degree relative Acute myocardial infarction Father Family history of chronic obstructive pulmonary disease Malignant neoplasm of prostate Family history of lung cancer Skin cancer Sibling Thyroid activity decreased Breast cancer Other Carcinoma of colon Cerebrovascular accident Diabetes mellitus Family history of allergic disorder Family history of cardiovascular disease Family history of malignant neoplasm Social History Social History (Updated 02/13/24 @ 18:37 by Zeny Chavira PA-C) Social History: Surrogate medical decision maker: Bridger Anderson, sibling. Co
[2024-02-13 16:00] VITALS: BP 126/61; PULSE 80; RESP 16; O2SAT 97
[2024-02-13 16:07] LABS: Basophils Percent Auto 0.3 % (0.2-1.2); Eosinophils Absolute Auto 0.3 K/mm3 (0-0.3); Eosinophils Percent Auto 4.6 % (0-4.4); Hemoglobin 12.5 g/dL (12.0-15.0); Immature Granulocyte Absolute 0.01 K/mm3 (0.00-0.031); Immature Granulocyte Percent A 0.1 % (0-0.5); Lymphocytes Absolute Auto 1.42 K/mm3 (0.9-3.2); Lymphocytes Percent Auto 20.3 % (18.3-44.2); Mean Corpuscular HGB Conc 31.3 g/dl (32-36); Mean Corpuscular Hemoglobin 26.3 pg (26-34); Mean Platelet Volume 9.2 fl (7.4-10.4); Monocytes Absolute Auto 0.4 K/mm3 (0.1-0.6); Monocytes Percent Auto 5.2 % (2.6-8.5); Neutrophils Absolute Auto 4.9 K/mm3 (1.3-6.7); Neutrophils Percent Auto 69.5 % (45.5-73.1); Platelet Count Result 133 k/mm3 (150-375); Red Blood Count 4.76 M/mm3 (4.2-5.4); Red Cell Distribution Width 17.3 % (11.5-14.5)
[2024-02-13 16:17] LABS: Alanine Aminotransferase 10 U/L (6-35); Albumin Level 3.5 g/dL (3.5-5.1); Alkaline Phosphatase 64 U/L (38-126); Anion Gap 8 mmol/L (4-12); Aspartate Amino Transferase 17 U/L (14-36); Bilirubin,Total 0.4 mg/dL (0.2-1.3); Blood Urea Nitrogen 12 mg/dL (7-17); Calcium 8.5 mg/dL (8.4-10.2); Carbon Dioxide 27 mmol/L (22-30); Chloride 107 mmol/L (98-107); Estimated CRCL calculation 89 ml/min; Estimated Glomerular Filt Rate > 60; Glucose 114 mg/dL (65-110); Potassium 3.5 mmol/L (3.4-5.0); Sodium 142 mmol/L (137-145)
[2024-02-13] MEDS: MEROPENEM 1 GM/NS 100 ML 1 GM/100 ML BAG IVPB ×2 (16:23→21:11)
[2024-02-13 16:36] LABS: Lactic Acid Reflex 1.5 mmol/L (0.7-2.0)
[2024-02-13 16:50] LABS: Appearance Urine Cloudy (Clear); Bacteria Urine 4+ /hpf; Bilirubin Urine Negative (Negative); Blood Urine Non-Hemolyzed Trace (Negative); Color Urine Yellow (Yellow); Glucose Urine UA Negative (Negative); Ketones Urine Negative (Negative); Leukocyte Esterase Ur 3+ LEU/UL (Negative); Nitrate Urine Positive (Negative); Non Pathogenic Casts 0-2; Protein Urine Trace mg/dL (Negative); RBC Urine 0-2 /hpf (0-2); Specific Grav Ur 1.016 (1.001-1.035); Squamous Epithelial Cell Urine None Seen /hpf (Few); Urobilinogen Urine 0.2 mg/dL (<2.0); WBC Urine >100 /hpf (0-3)
[2024-02-13 16:52] LABS: Add Urine Microscopic? YES
[2024-02-13 17:14] VITALS: BP 117/46; PULSE 86; RESP 16; O2SAT 96
--- NOTE | 2024-02-13 17:14 | PM.IMHP ---
H&P: HPI History of Present Illness Date/Time: 02/13/24 18:45 Chief Complaint: Drug-resistant urinary tract infection. Narrative: This is a pleasant 63-year-old female with history of recurrent urinary tract infections, overactive bladder, hyperlipidemia, peptic ulcers gastroesophageal reflux disease, depression, and anxiety who presented to the emergency department in need of IV antibiotics after she was found to have a drug-resistant urinary tract infection. The patient provides the following history. She was hospitalized last fall several times for an extended period of time (GI bleed related to peptic ulcers requiring exploratory laparotomy and what sounds like partial gastrectomy). During that stay and when she was in rehab she had several UTIs. Recently she once again started to develop urinary symptoms including dysuria, frequency, and urgency and she was placed on cephalexin. Due to ongoing symptoms her antibiotic was changed to Bactrim and a urine culture was obtained on 02/08/2024 which grew ESBL Klebsiella pneumoniae sensitive only to carbapenems. She was sent to the ER to be admitted for IV antibiotics. At the time my evaluation she is resting comfortably and has no specific complaints aside from the urinary symptoms. She denies malaise, fever, chills, sweats, nausea, vomiting, back and abdominal pain, and diarrhea. In the ED: She was afebrile on arrival stable vital signs. Labs were significant for WBC count of 7.0, hemoglobin 12.5, platelet 133, lactic acid 1.5, glucose 114. Urine was positive for nitrates, leukocyte esterase, bacteria, and many WBCs. She was given a dose of meropenem and is being admitted in this setting. Review of Systems Review of Systems: 12 systems were reviewed and are negative except for as per HPI. [facility] Past Medical History Medical History Agoraphobia with panic disorder Atherosclerotic heart disease of [place] coronary artery with angina pectoris Chronic obstructive pulmonary disease Chronic respiratory failure with hypoxia and hypercapnia Compression fracture T10 through T12 vertebral body De Quervain's tenosynovitis Diabetic retinopathy Duodenal hemorrhage Duodenal ulcer Essential (primary) hypertension Fracture of 5th metatarsal Heart failure with preserved ejection fraction EF of 62% on echo in April 2022. Hepatosplenomegaly Major depressive disorder Mixed hyperlipidemia Morbid (severe) obesity due to excess calories With a BMI as high as 60 in the past but currently 46 Obstructive sleep apnea Overactive bladder Peripheral neuropathy Tinnitus Type 2 diabetes mellitus Uterine cancer Venous stasis of both lower extremities Vitamin D deficiency Surgical History Surgical History Gastric ulcer with perforation 2011 treated at [facility] History of cholecystectomy History of colonoscopy with polypectomy (~2014) Hyperplastic polyp, dr. Salazar History of lumbar laminectomy History of resection of stomach History of right heart catheterization History of total hysterectomy with bilateral salpingo-oophorectomy (BSO) Family History Family History Sibling Family history of thyroid disease Mother Hypertension Family history of diabetes mellitus in first degree relative Acute myocardial infarction Father Family history of chronic obstructive pulmonary disease Malignant neoplasm of prostate Family history of lung cancer Skin cancer Sibling Thyroid activity decreased Breast cancer Other Carcinoma of colon Cerebrovascular accident Diabetes mellitus Family history of allergic disorder Family history of cardiovascular disease Family history of malignant neoplasm Social History Social History (Updated 02/14/24 @ 00:43 by Zeny Chavira PA-C) Social History: Surrogate medica
[2024-02-13 17:42] VITALS: BMI 37.0
[2024-02-13 17:48] VITALS: BP 137/69; PULSE 90; RESP 18; TEMP 35.7; O2SAT 93
--- NOTE | 2024-02-13 18:10 | PC.NURSE ---
This patient, Mary Jane Anderson, was admitted to Medical Room 344-01. Patient/family oriented to hospital policies and general routines including ID bracelet, bed and alarms, visiting hours, pain management, procedures, bathroom and other care routines, personal items, smoking policy, room service/diet, and visiting hours. Information on how to activate the Rapid Response Team has been discussed. Patient/Family are encouraged to report perceived risks to care and to ask questions if they do not understand what they are told or what they should do.
--- NOTE | 2024-02-13 19:11 | PCRCNOTE ---
Patient has no desire to wear bipap/cpap.
[2024-02-13 20:28] VITALS: BP 141/66; PULSE 94; RESP 16; TEMP 36.8; O2SAT 92
[2024-02-13] MEDS: oxyBUTYnin CHLORIDE XL 5 MG TAB.ER.24 20 MG PO (20:56)
[2024-02-13] MEDS: ACETAMINOPHEN 325 MG TABLET 650 MG PO (20:56)
[2024-02-13] MEDS: BACLOFEN 10 MG TABLET PO (20:57)
[2024-02-13] MEDS: NYSTATIN OINTMENT 15 GM TUBE 1 APPLIC TOPICAL (20:58)
[2024-02-13] MEDS: diazePAM (*CRX) 5 MG TABLET 10 MG PO (20:58)
[2024-02-13] MEDS: carBAMazepine 200 MG TABLET 400 MG BY MOUTH (21:12)
[2024-02-13 21:21] LABS: Glucose Point of Care 114 mg/dl (65-105)
[2024-02-13 21:27] LABS: Hemoglobin A1C 4.8 % (<5.7)
[2024-02-14 05:22] VITALS: BP 148/73; PULSE 69; RESP 16; TEMP 36.2; O2SAT 92
[2024-02-14 05:33] LABS: Hematocrit 40.1 % (37.0-47.0); Immature Platelet Fraction Pct 1.9 % (0.9-11.2); Mean Corpuscular HGB Conc 29.9 g/dl (32-36); Mean Corpuscular Hemoglobin 25.7 pg (26-34); Mean Corpuscular Volume 85.9 fl (80-100); Platelet Count Result 143 k/mm3 (150-375); Red Blood Count 4.67 M/mm3 (4.2-5.4); Red Cell Distribution Width 17.7 % (11.5-14.5); White Blood Count 7.7 K/mm3 (4.5-10.0)
[2024-02-14 05:44] LABS: Anion Gap 4 mmol/L (4-12); Blood Urea Nitrogen 14 mg/dL (7-17); Calcium 8.4 mg/dL (8.4-10.2); Carbon Dioxide 31 mmol/L (22-30); Chloride 105 mmol/L (98-107); Estimated CRCL calculation 77 ml/min; Estimated Glomerular Filt Rate > 60; Glucose 116 mg/dL (65-110); Potassium 4.1 mmol/L (3.4-5.0); Sodium 140 mmol/L (137-145)
[2024-02-14] MEDS: MEROPENEM 1 GM/NS 100 ML 1 GM/100 ML BAG IVPB ×3 (06:05→21:08)
[2024-02-14] MEDS: NYSTATIN OINTMENT 15 GM TUBE 1 APPLIC TOPICAL ×3 (06:05→21:14)
[2024-02-14 08:11] LABS: Glucose Point of Care 110 mg/dl (65-105)
[2024-02-14 08:25] VITALS: O2SAT 98
[2024-02-14] MEDS: buPROPion HCL XL (24 HR) 150 MG TABCR BY MOUTH (08:53)
[2024-02-14] MEDS: PARoxetine 20 MG TABLET 40 MG PO (08:53)
[2024-02-14] MEDS: carBAMazepine 200 MG TABLET BY MOUTH (08:53)
[2024-02-14] MEDS: BACLOFEN 10 MG TABLET 20 MG PO (08:53)
[2024-02-14] MEDS: ATORVASTATIN 40 MG TABLET PO (08:53)
[2024-02-14] MEDS: GABAPENTIN 300 MG CAPSULE 900 MG PO ×2 (08:53→17:22)
[2024-02-14] MEDS: PANTOPRAZOLE 40 MG TABLET PO (08:53)
[2024-02-14] MEDS: ACETAMINOPHEN 325 MG TABLET 650 MG PO (08:56)
--- NOTE | 2024-02-14 10:06 | PM.IMPN ---
Progress Note: A&P Assessment and Plan (1) Urinary tract infection due to extended-spectrum beta lactamase (ESBL)-producing Klebsiella: Code(s): N39.0 - Urinary tract infection, site not specified; B96.89 - Other specified bacterial agents as the cause of diseases classified elsewhere Status: Acute Assessment and Plan: Patient presented to the hospital after a urine culture was obtained on 02/08/2024 which grew ESBL Klebsiella pneumoniae sensitive only to carbapenems.? - Meropenem 1 g q8 hours started on 02/12 - New urine culture obtained on 02/12 pending - CC consulted to help arrange IV antibiotics on discharge. Patient will likely need midline placement (2) Heart failure with preserved ejection fraction: Code(s): I50.30 - Unspecified diastolic (congestive) heart failure Status: Acute Assessment and Plan: Does not appear in acute exacerbation. - Continue home medications (3) Type 2 diabetes mellitus: Code(s): E11.9 - Type 2 diabetes mellitus without complications Status: Acute Assessment and Plan: - hypoglycemia protocol - POC blood glucose ACHS - home medication - none - correct regimen ordered - low dose TIDWM and HS - A1C 01/17: 4.8 (4) Obstructive sleep apnea: Code(s): G47.33 - Obstructive sleep apnea (adult) (pediatric) Status: Acute Assessment and Plan: continue CPAP (5) Chronic obstructive pulmonary disease: Code(s): J44.9 - Chronic obstructive pulmonary disease, unspecified Status: Acute Assessment and Plan: No signs of acute exacerbation. - Monitor (6) Fall: Code(s): W19.XXXA - Unspecified fall, initial encounter Status: Acute Assessment and Plan: Patient reports a mechanical ground level fall prior to admission. She states that she did hit her head but denies loss of consciousness. Patient was unable to get up on her own at that time and called EMS for a lift assist. She states that she then went to the restroom and returned to bed. She denies headaches, vision changes, dizziness, and weakness at this time. Discussed with patient the importance of obtaining and image to rule out any acute findings. She states she does not want imaging done, that is not why she came to the hospital and she should not have told me. Told patient that if images are not obtained we are unable to rule out further trauma and potential bleeds which could lead to worsening symptoms or even . She states understanding and does not wish to proceed with images. - PT/OT ordered Time Spent With Patient Time with patient: 25 - 35 minutes Subjective Date/time seen: 02/14/24 10:06 Interval history: 63-year-old female with history of recurrent urinary tract infections, overactive bladder, hyperlipidemia, peptic ulcers gastroesophageal reflux disease, depression, and anxiety who presented to the emergency department in need of IV antibiotics after she was found to have a drug-resistant urinary tract infection.?Urine culture was obtained on 02/08/2024 outpatient which grew ESBL Klebsiella pneumoniae sensitive only to carbapenems.? Patient is pleasant lying in bed. She states that since starting the antibiotics her urinary symptoms have resolved. She denies dysuria, burning sensation, and hematuria. She remains on meropenem IV with plan to discharge home with mid line in place and home health services. Care coordination is following. Patient reports that prior to admission she had a ground level fall when walking to the restroom due to her depends falling down. She states that she did hit her head but denies loss of consciousness. Patient was unable to get up on her own at that time and called EMS for a lift assist. She states that she then went to the restroom and returned to bed. She denies headaches, vision changes, dizziness, and weakness at this time. Discussed with patient the importance of obtaining and image to rule out any acute finding
[2024-02-14 11:33] VITALS: BMI 36.1
[2024-02-14 12:11] LABS: Glucose Point of Care 102 mg/dl (65-105)
[2024-02-14 14:00] VITALS: BP 138/64; PULSE 80; RESP 24; TEMP 36.1; O2SAT 93
[2024-02-14 17:05] LABS: Glucose Point of Care 97 mg/dl (65-105)
[2024-02-14 19:56] VITALS: BP 131/63; PULSE 85; RESP 20; TEMP 36.8; O2SAT 95
[2024-02-14 20:23] LABS: Glucose Point of Care 196 mg/dl (65-105)
[2024-02-14] MEDS: oxyBUTYnin CHLORIDE XL 5 MG TAB.ER.24 20 MG PO (21:07)
[2024-02-14] MEDS: carBAMazepine 200 MG TABLET 400 MG BY MOUTH (21:08)
[2024-02-14] MEDS: BACLOFEN 10 MG TABLET PO (21:08)
[2024-02-14] MEDS: diazePAM (*CRX) 5 MG TABLET 10 MG PO (21:08)
[2024-02-15 05:03] VITALS: BP 142/64; PULSE 68; RESP 18; TEMP 36.3; O2SAT 96
[2024-02-15] MEDS: MEROPENEM 1 GM/NS 100 ML 1 GM/100 ML BAG IVPB ×3 (06:00→21:00)
[2024-02-15] MEDS: NYSTATIN OINTMENT 15 GM TUBE 1 APPLIC TOPICAL ×3 (06:02→21:01)
[2024-02-15 08:18] LABS: Basophils Percent Auto 0.5 % (0.2-1.2); Eosinophils Absolute Auto 0.6 K/mm3 (0-0.3); Hematocrit 38.3 % (37.0-47.0); Hemoglobin 11.9 g/dL (12.0-15.0); Immature Granulocyte Absolute 0.01 K/mm3 (0.00-0.031); Immature Granulocyte Percent A 0.2 % (0-0.5); Lymphocytes Absolute Auto 1.78 K/mm3 (0.9-3.2); Lymphocytes Percent Auto 28.3 % (18.3-44.2); Mean Corpuscular HGB Conc 31.1 g/dl (32-36); Mean Corpuscular Hemoglobin 26.3 pg (26-34); Mean Corpuscular Volume 84.5 fl (80-100); Mean Platelet Volume 9.8 fl (7.4-10.4); Monocytes Absolute Auto 0.3 K/mm3 (0.1-0.6); Monocytes Percent Auto 4.8 % (2.6-8.5); Neutrophils Absolute Auto 3.6 K/mm3 (1.3-6.7); Neutrophils Percent Auto 57.2 % (45.5-73.1); Platelet Count Result 123 k/mm3 (150-375); Red Blood Count 4.53 M/mm3 (4.2-5.4); Red Cell Distribution Width 17.8 % (11.5-14.5); White Blood Count 6.3 K/mm3 (4.5-10.0)
[2024-02-15] MEDS: ATORVASTATIN 40 MG TABLET PO (08:25)
[2024-02-15] MEDS: PANTOPRAZOLE 40 MG TABLET PO (08:25)
[2024-02-15] MEDS: GABAPENTIN 300 MG CAPSULE 900 MG PO ×2 (08:25→16:30)
[2024-02-15 08:26] LABS: Glucose Point of Care 113 mg/dl (65-105)
[2024-02-15] MEDS: buPROPion HCL XL (24 HR) 150 MG TABCR BY MOUTH (08:26)
[2024-02-15] MEDS: PARoxetine 20 MG TABLET 40 MG PO (08:26)
[2024-02-15] MEDS: carBAMazepine 200 MG TABLET BY MOUTH (08:26)
[2024-02-15] MEDS: BACLOFEN 10 MG TABLET 20 MG PO (08:26)
[2024-02-15 08:43] LABS: Alanine Aminotransferase 10 U/L (6-35); Albumin Level 3.6 g/dL (3.5-5.1); Alkaline Phosphatase 71 U/L (38-126); Anion Gap 5 mmol/L (4-12); Aspartate Amino Transferase 16 U/L (14-36); Bilirubin,Total 0.4 mg/dL (0.2-1.3); Blood Urea Nitrogen 9 mg/dL (7-17); Calcium 8.3 mg/dL (8.4-10.2); Carbon Dioxide 31 mmol/L (22-30); Chloride 104 mmol/L (98-107); Estimated CRCL calculation 100 ml/min; Estimated Glomerular Filt Rate > 60; Glucose 117 mg/dL (65-110); Potassium 3.8 mmol/L (3.4-5.0); Sodium 140 mmol/L (137-145)
[2024-02-15 11:50] LABS: Glucose Point of Care 101 mg/dl (65-105)
[2024-02-15 14:00] VITALS: BP 139/63; PULSE 78; RESP 18; TEMP 36.1; O2SAT 93
[2024-02-15] MEDS: LIDOCAINE HCL 1% LOCAL INJ 2 ML AMPUL 5 ML INFILTRATE (14:15)
--- NOTE | 2024-02-15 15:19 | PM.IMPN ---
Progress Note: A&P Assessment and Plan (1) Urinary tract infection due to extended-spectrum beta lactamase (ESBL)-producing Klebsiella: Code(s): N39.0 - Urinary tract infection, site not specified; B96.89 - Other specified bacterial agents as the cause of diseases classified elsewhere Status: Acute Assessment and Plan: Patient presented to the hospital after a urine culture was obtained on 02/08/2024 which grew ESBL Klebsiella pneumoniae sensitive only to carbapenems.? - Meropenem 1 g q8 hours started on 02/12 will be transitioned to ertapenem tomorrow morning for plan to discharge - New urine culture obtained on 02/12: klebsiella pneumoniae with panresistance to all antibiotics excepts carbapenems - CC consulted to help arrange IV antibiotics on discharge. - Midline ordered (2) Heart failure with preserved ejection fraction: Code(s): I50.30 - Unspecified diastolic (congestive) heart failure Status: Acute Assessment and Plan: Does not appear in acute exacerbation. - Continue home medications (3) Type 2 diabetes mellitus: Code(s): E11.9 - Type 2 diabetes mellitus without complications Status: Acute Assessment and Plan: - hypoglycemia protocol - POC blood glucose ACHS - home medication - none - correct regimen ordered - low dose TIDWM and HS - A1C 01/17: 4.8 (4) Obstructive sleep apnea: Code(s): G47.33 - Obstructive sleep apnea (adult) (pediatric) Status: Acute Assessment and Plan: continue CPAP (5) Chronic obstructive pulmonary disease: Code(s): J44.9 - Chronic obstructive pulmonary disease, unspecified Status: Acute Assessment and Plan: No signs of acute exacerbation. - Monitor (6) Fall: Code(s): W19.XXXA - Unspecified fall, initial encounter Status: Acute Assessment and Plan: Patient reports a mechanical ground level fall prior to admission. She states that she did hit her head but denies loss of consciousness. Patient was unable to get up on her own at that time and called EMS for a lift assist. She states that she then went to the restroom and returned to bed. She denies headaches, vision changes, dizziness, and weakness at this time. Discussed with patient the importance of obtaining and image to rule out any acute findings. She states she does not want imaging done, that is not why she came to the hospital and she should not have told me. Told patient that if images are not obtained we are unable to rule out further trauma and potential bleeds which could lead to worsening symptoms or even . She states understanding and does not wish to proceed with images. - PT/OT evaluated patient. Recommend home health. Time Spent With Patient Time with patient: 25 - 35 minutes Subjective Date/time seen: 02/15/24 15:19 Interval history: 63-year-old female with history of recurrent urinary tract infections, overactive bladder, hyperlipidemia, peptic ulcers gastroesophageal reflux disease, depression, and anxiety who presented to the emergency department in need of IV antibiotics after she was found to have a drug-resistant urinary tract infection.?Urine culture was obtained on 02/08/2024 outpatient which grew ESBL Klebsiella pneumoniae sensitive only to carbapenems.? Patient is pleasant lying comfortably in bed. She denies urinary symptoms at this time. Urine culture with klebsiella pneumoniae with avelar resistance to all antibiotics except carbapenems. She remains on meropenem at this time and will be transitioned to ertapenem in the am for plan to discharge home with home health. Midline ordered. Spoke with care coordination and patient is to undergo midline teaching tomorrow morning. Patient worked with PT/OT today and states she feels steady on her feet. PT/OT recommending home with home health. Patient denies chest pain, shortness of breath, nausea/vomiting. Review of Systems Review of Systems: All systems reviewed &
[2024-02-15 20:49] VITALS: BP 138/77; PULSE 77; RESP 18; TEMP 36.2; O2SAT 96
[2024-02-15] MEDS: diazePAM (*CRX) 5 MG TABLET 10 MG PO (20:56)
[2024-02-15] MEDS: BACLOFEN 10 MG TABLET PO (20:56)
[2024-02-15] MEDS: carBAMazepine 200 MG TABLET 400 MG BY MOUTH (20:56)
[2024-02-15] MEDS: oxyBUTYnin CHLORIDE XL 5 MG TAB.ER.24 20 MG PO (20:56)
[2024-02-15] MEDS: SALINE LOCK FLUSH 10 ML IV PUSH (21:00)
[2024-02-16 05:19] VITALS: BP 135/76; PULSE 70; RESP 18; TEMP 36.3; O2SAT 93
[2024-02-16] MEDS: SALINE LOCK FLUSH 10 ML IV PUSH ×2 (05:55→14:22)
[2024-02-16] MEDS: NYSTATIN OINTMENT 15 GM TUBE 1 APPLIC TOPICAL ×2 (05:55→14:21)
[2024-02-16 06:12] LABS: Basophils Percent Auto 0.7 % (0.2-1.2); Eosinophils Absolute Auto 0.5 K/mm3 (0-0.3); Eosinophils Percent Auto 8.5 % (0-4.4); Hematocrit 38.6 % (37.0-47.0); Hemoglobin 12.1 g/dL (12.0-15.0); Immature Granulocyte Absolute 0.02 K/mm3 (0.00-0.031); Immature Granulocyte Percent A 0.3 % (0-0.5); Lymphocytes Absolute Auto 1.69 K/mm3 (0.9-3.2); Lymphocytes Percent Auto 27.7 % (18.3-44.2); Mean Corpuscular HGB Conc 31.3 g/dl (32-36); Mean Corpuscular Hemoglobin 26.4 pg (26-34); Mean Corpuscular Volume 84.1 fl (80-100); Mean Platelet Volume 8.7 fl (7.4-10.4); Monocytes Absolute Auto 0.3 K/mm3 (0.1-0.6); Monocytes Percent Auto 4.7 % (2.6-8.5); Neutrophils Absolute Auto 3.6 K/mm3 (1.3-6.7); Neutrophils Percent Auto 58.1 % (45.5-73.1); Platelet Count Result 122 k/mm3 (150-375); Red Blood Count 4.59 M/mm3 (4.2-5.4); White Blood Count 6.1 K/mm3 (4.5-10.0)
[2024-02-16 06:26] LABS: Alanine Aminotransferase 12 U/L (6-35); Albumin Level 3.7 g/dL (3.5-5.1); Alkaline Phosphatase 71 U/L (38-126); Anion Gap 2 mmol/L (4-12); Aspartate Amino Transferase 20 U/L (14-36); Bilirubin,Total 0.4 mg/dL (0.2-1.3); Blood Urea Nitrogen 9 mg/dL (7-17); Calcium 8.3 mg/dL (8.4-10.2); Carbon Dioxide 31 mmol/L (22-30); Chloride 105 mmol/L (98-107); Estimated CRCL calculation 118 ml/min; Estimated Glomerular Filt Rate > 60; Glucose 114 mg/dL (65-110); Potassium 3.8 mmol/L (3.4-5.0); Sodium 138 mmol/L (137-145)
[2024-02-16] MEDS: ACETAMINOPHEN 325 MG TABLET 650 MG PO (06:37)
[2024-02-16] MEDS: ENOXAPARIN 40 MG/0.4 ML SYRINGE SUB-Q (08:21)
[2024-02-16] MEDS: buPROPion HCL XL (24 HR) 150 MG TABCR BY MOUTH (08:21)
[2024-02-16] MEDS: ATORVASTATIN 40 MG TABLET PO (08:21)
[2024-02-16] MEDS: PARoxetine 20 MG TABLET 40 MG PO (08:21)
[2024-02-16] MEDS: GABAPENTIN 300 MG CAPSULE 900 MG PO (08:21)
[2024-02-16] MEDS: BACLOFEN 10 MG TABLET 20 MG PO (08:21)
[2024-02-16] MEDS: carBAMazepine 200 MG TABLET BY MOUTH (08:21)
[2024-02-16] MEDS: PANTOPRAZOLE 40 MG TABLET PO (08:21)
[2024-02-16] MEDS: ERTAPENEM 1 GM/NS 50 ML 1 GM/50 ML BAG IVPB (08:22)
[2024-02-16 14:00] VITALS: BP 134/64; PULSE 77; RESP 12; TEMP 35.8; O2SAT 94
--- NOTE | 2024-02-16 14:05 | PM.DS ---
DS: Admitting Diagnosis Discharge Date 02/16/24 Admitting Diagnosis Urinary tract infection due to extended spectrum beta lactamase (ESBL) - producing Klebsiella Heart failure with preserved ejection fraction Type 2 diabetes COPD Fall DS: Discharge Diagnosis Discharge Diagnosis (1) Urinary tract infection due to extended-spectrum beta lactamase (ESBL)-producing Klebsiella: Code(s): N39.0 - Urinary tract infection, site not specified; B96.89 - Other specified bacterial agents as the cause of diseases classified elsewhere Status: Acute (2) Heart failure with preserved ejection fraction: Code(s): I50.30 - Unspecified diastolic (congestive) heart failure Status: Acute (3) Type 2 diabetes mellitus: Code(s): E11.9 - Type 2 diabetes mellitus without complications Status: Acute (4) Obstructive sleep apnea: Code(s): G47.33 - Obstructive sleep apnea (adult) (pediatric) Status: Acute (5) Chronic obstructive pulmonary disease: Code(s): J44.9 - Chronic obstructive pulmonary disease, unspecified Status: Acute (6) Fall: Code(s): W19.XXXA - Unspecified fall, initial encounter Status: Acute DS: Summary Hospital Course Reason for hospitalization: Urinary tract infection due to extended spectrum beta lactamase (ESBL) - producing Klebsiella Heart failure with preserved ejection fraction Type 2 diabetes COPD Fall Hospital Course: 63-year-old female with history of recurrent urinary tract infections, overactive bladder, hyperlipidemia, peptic ulcers gastroesophageal reflux disease, depression, and anxiety who presented to the emergency department in need of IV antibiotics after she was found to have a drug-resistant urinary tract infection.?Urine culture was obtained on 02/08/2024 outpatient which grew ESBL Klebsiella pneumoniae sensitive only to carbapenems.?On admission a new urine culture was obtained and patient was started on meropenem. Urine culture was positive for klebsiella pneumoniae with panresistance to all antibiotics excepts carbapenems. Patient noted that urinary symptoms resolved with IV antibiotic treatment. Care coordination was consulted to set up home health for IV antibiotics. Midline was placed. Patient was transitioned to ertapenem prior to discharge. Patient to follow up with PCP in 1 week to discuss recent admission. During admission patient mentioned a fall at home. She states that she did hit her head but denies loss of consciousness. Patient was unable to get up on her own at that time and called EMS for a lift assist. She states that she then went to the restroom and returned to bed. She denies headaches, vision changes, dizziness, and weakness at this time. Discussed with patient the importance of obtaining and image to rule out any acute findings. She states she does not want imaging done, that is not why she came to the hospital and she should not have told me. Told patient that if images are not obtained we are unable to rule out further trauma and potential bleeds which could lead to worsening symptoms or even . She states understanding and does not wish to proceed with images. PT/OT evaluated patient and recommend continued home health therapy. Patient discharged home with home health in stable condition. She will continue on the ertapenem and follow up with PCP in 1 week. Status at Discharge Functional status at discharge: independent ambulation Time Spent with Patient Time attestation: Total time spent providing and/or coordinating discharge services: Time spent: Greater than 30 minutes Exam Narrative: AF HR 77 RR 12 SpO2 94 BP 134/64 General: female in no acute respiratory distress who is nontoxic appearing, lying semi recumbent in bed. HEENT: Normocephalic. Atraumatic. Pupils equal round reactive to light. Extraocular movement intact. Sclera clear and anicteric. No facial asymmetry. Chest: Lungs are clear to auscultation bilaterally. No
== END 2024-02-16 15:15 | disposition home health service (06) ==
LOC: ANHED 15:45 → ANH3MED 17:24
PROVIDERS: Physician Assistant; Student in an Organized Health Care Education/Training Program; Admitting Provider General Practice; Emergency Provider Emergency Medicine; PCP Family Medicine; Visit Provider Internal Medicine
DX: N39.0 Urinary tract infection, site not specified (principal); B96.1 Klebsiella pneumoniae [K. pneumoniae] as the cause of diseases classified elsewhere; W19.XXXA Unspecified fall, initial encounter; J96.12 Chronic respiratory failure with hypercapnia; J96.11 Chronic respiratory failure with hypoxia; J44.9 Chronic obstructive pulmonary disease, unspecified; I25.10 Atherosclerotic heart disease of native coronary artery without angina pectoris; I11.0 Hypertensive heart disease with heart failure; I50.30 Unspecified diastolic (congestive) heart failure; E78.2 Mixed hyperlipidemia; F32.9 Major depressive disorder, single episode, unspecified; E11.42 Type 2 diabetes mellitus with diabetic polyneuropathy; E11.319 Type 2 diabetes mellitus with unspecified diabetic retinopathy without macular edema; N32.81 Overactive bladder; E55.9 Vitamin D deficiency, unspecified; F40.01 Agoraphobia with panic disorder; E66.9 Obesity, unspecified; Z68.35 Body mass index [BMI] 35.0-35.9, adult; G47.33 Obstructive sleep apnea (adult) (pediatric); Z85.42 Personal history of malignant neoplasm of other parts of uterus; Z87.11 Personal history of peptic ulcer disease; Z87.891 Personal history of nicotine dependence; Z16.35 Resistance to multiple antimicrobial drugs
CPT/HCPCS: 36415; 36569; 80048; 80053; 81001; 82948; 83036; 83605; 83735; 85025; 85027; 85055; 87040; 87077; 87086; 87088; 87186; 96365; 96367; 96372; 97161; 97165; 97530; 97535; 99285; A9270; G0378; J1335; J1650; J2185

== ENCOUNTER 2024-03-07 08:51 | Outpatient (NON) | payer MEDICARE, MEDICAID, SELFPAY | END 2024-03-07 08:52 | disposition home or self-care (01) | LOC: ANHLAB 08:52 | PROVIDERS: PCP Family Medicine; Visit Provider Nurse Practitioner Adult Health | DX: R32 Unspecified urinary incontinence (principal); A49.8 Other bacterial infections of unspecified site | CPT/HCPCS: 87086 ==

== ENCOUNTER 2025-04-11 09:44 | Outpatient (CLI) | payer MEDICARE, MEDICAID, SELFPAY ==
--- OUTSIDE RECORDS SUMMARY | 2025-04-11 09:49 | XMS_ITS | Continuity of Care Document ---
Author Organization [facility] Address [id number] [place] [address] [address] [place] [address] Phone Care Team Providers Care Content Director Name Role Phone Vanesa Zafar Unavailable Unavailable Advance Directives Directive Yes / No Effective Date File Name No Information Encounters Encounter Description Practice Location Reason(s) For Visit Diagnoses Date Provider Providers Copied on Encounter [facility], [address], [place], [place], [id number], [place] tel:[phone] [facility] No Information [address] , [address], [place], [address], [place]. tel:[phone] Family History Family Member Type Diagnosis Age At Onset No Information Payers Payer name Insurance type Covered green party ID Authoriza tion(s) [place] [id number] Social History Type Description Quantity Date Captured Comments Sex Female Smoking Status No Information Chief Complaint And Reason For Visit No Information Reason For Referral Reason For Referral No Information History Of Present Illness Encounter Date Complaint History Of Prese nt Illness No Information Functional Status Date Functional Assessmen t No Information Instructions Date Instruction Additional Infor mation No Information Assessments Type Assessment Date No Information Patient Care Teams Name Effective Dates (start - stop) Status Members No Information
--- NOTE | 2025-04-11 10:03 | ECHO_ITS ---
Patient Info Name: Mary Jane Anderson Age: 64 years : 1960 Gender: Female Ht: 66 in Wt: 240 lbs BSA: 2.30 m2 HR: 67 bpm BP: 143 / 98 mmHg Technical Quality: Poor Exam Date: 04/11/2025 10:09 AM Patient Status: O Admit Date: 04/11/2025 Exam Type: CA echo doppler color flow Complete two-dimensional, color flow and Doppler transthoracic echocardiogram is performed with contrast to opacify the left ventricle and to improve the deliniation of the left ventricle endocardial borders. Rivet Heater: Yasmine Franco Attending Provider: Theodore Viramontes MD Contrast/Agitated Saline Contrast/Ag. Saline: Definity Amount: 2.00 ml Administered By: Yasmine Franco Reason for Poor Study: poor echocardiographic windows Summary 1. Left ventricular chamber dimension is normal. 2. Left ventricular systolic function is normal, estimated at 60-65. 3. There is mild concentric increased left ventricular wall thickness. 4. The left ventricular diastolic function is grade I diastolic dysfunction. 5. Definity contrast administered improved wall motion interpretation. 6. E/e' 14 is mildly elevated. 7. Left atrial chamber dimension is mildly enlarged. 8. There is moderate aortic valve sclerosis. 9. There is mild aortic valve stenosis with a peak velocity of 236 cm/s, mean gradient of 11 mmHg, and aortic valve area of 1.7 cm2. 10. There is trivial pericardial effusion. Left Ventricle E/e' 14 is mildly elevated. Left ventricular chamber dimension is normal. Left ventricular systolic function is normal, estimated at 60-65. There is mild concentric increased left ventricular wall thickness. The left ventricular diastolic function is grade I diastolic dysfunction. Definity contrast administered improved wall motion interpretation. Right Ventricle Right ventricular chamber dimension is normal. Right ventricular systolic function is normal and with normal TAPSE 1.8 cm. Left Atria Left atrial chamber dimension is mildly enlarged. Right Atria Right atrial chamber dimension is normal. Aortic Valve The aortic valve is trileaflet. There is moderate aortic valve sclerosis. There is mild aortic valve stenosis with a peak velocity of 236 cm/s, mean gradient of 11 mmHg, and aortic valve area of 1.7 cm2. There is no aortic valve regurgitation. Pulmonic Valve There is no pulmonic regurgitation. Mitral Valve There is no mitral valve stenosis. There is no mitral valve regurgitation. Tricuspid Valve There is no tricuspid valve regurgitation. Pericardium/Pleural There is trivial pericardial effusion. Inferior Vena Cava Normal inferior vena cava with >50% collapse upon inspiration consistent with normal right atrial pressure, 5 mmHg. Aorta The aortic root size at the sinus of Valsalva is normal. Left Ventricular Outflow Tract Name Value Normal LVOT 2D LVOT Diameter 2.0 cm LVOT Doppler LVOT Peak Velocity 108 cm/s LVOT Peak Gradient 5 mmHg LVOT Mean Gradient 3 mmHg LVOT VTI 28 cm LVOT VTI/AV VTI Ratio 0.5 LVOT Stroke Volume 91 ml LVOT CO 5.6 l/min LVOT CI 2.4 l/min/m2 Pulmonic Valve Name Value Normal RVOT Doppler RVOT Peak Velocity 105 cm/s RVOT Peak Gradient 4 mmHg PV Doppler PV Peak Velocity 123 cm/s PV Peak Gradient 6 mmHg Mitral Valve Name Value Normal MV Diastolic Function MV E Peak Velocity 79 cm/s MV A Peak Velocity 86 cm/s MV E/A 0.9 MV Decel Time (PW) 310 ms MV Annular TDI MV E/e' (Septal) 17.2 MV E/e' (Lateral) 12.7 MV E/e' (Average) 15.0 Tricuspid Valve Name Value Normal Estimated PAP/RSVP RA Pressure 5 mmHg <=5 Aortic Valve Name Value Normal AV Doppler AV Peak Velocity 236 cm/s AV Peak Gradient 19 mmHg AV Mean Gradient 11 mmHg AV VTI 53 cm AV Area (Cont Eq VTI) 1.7 cm2 >=3.0 AV Area (Cont Eq Johnny) 1.5 cm2 AV DI (Johnny) 0.46 AV Regurgitation 2D LVOT Area 3.3 cm2 Ventricles Name Value Normal LV Dimensions 2D/MM IVS Diastolic Thickness (2D) 1.3 cm 0.6-1.0 LVID Diastole (2D) 5.3 cm 3.8-5.2 LVIW Diastolic Thickness (2D) 1.1 cm 0.6-0.9 LVID Systole (2D) 3.1 cm 2.2-3.5 LVOT Diameter 2.0 cm LV Mass (2D Cubed) 249.89 g 67.00-162.00 LV Mass Index (2D Cubed) 109 g/m2 43-95 Relative Wall Thickness (2D) 0.40 <=0.42 LV Fractional Shortening/Ejection Fraction 2D/MM LV Fractional Shortening (2D) 42 % 27-45 LV EF (2D Teichholz) 73 % LV Diastolic Volume (4C MOD) 62 ml LV EF (4C MOD) 50 % LV Diastolic Volume (2C MOD) 67 ml LV EF (2C MOD) 67 % LV Diastolic Volume (BP MOD) 65 ml 46-106 LV Diastolic Volume Index (BP MOD) 28 ml/m2 29-61 LV Systolic Volume (BP MOD) 26 ml 14-42 LV Systolic Volume Index (BP MOD) 11 ml/m2 8-24 LV EF (BP MOD) 60 % 54-74 LV Diastolic Length (4C) 8.4 cm LV Systolic Length (4C) 7.2 cm LV Stroke Volume (4C MOD) 31 ml RV Dimensions 2D/MM TAPSE 1.8 cm >=1.7 Atria Name Value Normal LA Dimensions LA Volume (4C A-L) 64 ml LA Volume (BP A-L) 52 ml RA Dimensions RA Systolic Major Quinton Length (4C) 6.1 cm 2.2-2.8 RA Area (4C) 18.6 cm2 <=18.0 Report Signatures
[2025-04-11] MEDS: PERFLUTREN LIPID MICROSPHERES 1.5 ML VIAL DILUTED TO 10 ML TOTAL VOLUME IV PUSH (11:50)
--- NOTE | 2025-04-11 12:10 | IVDEFINITY ---
Prior to administration of IV Definity the patient was educated on the risks and benefits of the imaging enhancing agent including potential adverse side effects. The patient verbalized understanding. Allergies were verified. No exclusion criteria were identified and at least one of the following inclusion criteria were met: 1) physician request, 2) patient technically difficult to image (per the [place] [employer] of Echocardiography guidelines of two or more segments not discernable within the apical view), or 3) questionable left ventricular function. ?
== END 2025-04-11 09:45 | disposition home or self-care (01) ==
LOC: ANHCARD 09:46
PROVIDERS: PCP Family Medicine; Visit Provider Family Medicine
DX: R93.1 Abnormal findings on diagnostic imaging of heart and coronary circulation (principal); I50.32 Chronic diastolic (congestive) heart failure
CPT/HCPCS: 93306; Q9957